=== PATIENT | male | born 1970 | race Caucasian/White ===

== ENCOUNTER 2019-12-26 11:22 | Emergency (ER) | payer OTHER ==
[~2019-12-26] VITALS: Ht 188 cm; Wt 104.3 kg
[2019-12-26 11:28] VITALS: BP 132/88
[2019-12-26] MEDS ORDERED: Bactrim-DS 1 tab ORAL ONE (12:30)
[2019-12-26] MEDS ORDERED: Cephalexin 500mg cap ORAL ONE (12:30)
[2019-12-26] MEDS ORDERED: BACTRIM DS TAB1 EAC1 ORAL (13:11)
[2019-12-26] MEDS ORDERED: CEPHALEXIN500 M1 ORAL (13:11)
[2019-12-26 13:34] VITALS: BP 128/84
--- NOTE | 2019-12-26 13:48 | Diagnostic Imaging Report ---
Indication: Left leg pain, edema, fever Technique: Grayscale and duplex images of the left lower extremity veins Comparison: None Findings: On the left, grayscale and duplex images demonstrate no evidence of intraluminal thrombus. Normal phasic Doppler waveforms, demonstrating normal augmentation response and no evidence of valvular insufficiency. Greater saphenous vein(s) and tibial veins are patent. Normal compressibility. Impression: Negative for evidence of lower extremity deep venous thrombosis on the left
--- NOTE | 2019-12-26 14:46 | Emergency Room Report ---
History of Present Illness General Chief Complaint: Wound Recheck/Suture Removal Source: Patient Present Illness HPI 49-year-old male presented for left lower extremity pain. Patient had Achilles tendon repair approximately 2 months ago. This was done by Dr. Jimmy luna. Patient was in a cast that was removed on December 08. For the past week is developed some increased redness and drainage from his surgical site. He did go to his primary care doctor today who referred him to the ER. He was unable to contact his surgeon. Pain is currently 8 out of 10 worse with walking and nonradiating. He states he had a tactile fever yesterday none today. Also complained of pain in the calf and left femoral area. Ambulatory on arrival. Allergies: Coded Allergies: No Known Allergies (Unverified , 12/26/19) COVID-19 Screening Contact w/high risk pt: No Recent Travel to affected area: No Experienced COVID-19 symptoms?: No Patient History Reviewed Nursing Documentation: PMH: Agreed; PSxH: Agreed Nursing Documentation-PM Past Medical History: No Stated History Review of Systems All Other Systems: negative except mentioned in HPI Physical Exam Vital Signs Date Time Temp Pulse Resp B/P (MAP) Pulse Ox O2 Delivery O2 Flow Rate FiO2 12/26/19 11:28 98.4 88 18 132/88 97 Room Air Sp02 EP Interpretation: reviewed, normal General Appearance: well appearing, no apparent distress Head: normocephalic, atraumatic Eyes: bilateral eye PERRL, bilateral eye EOMI ENT: hearing grossly normal, moist mucus membranes Neck: full range of motion, supple Respiratory: lungs clear, normal breath sounds, no rhonchi, no respiratory distress, no retraction, no wheezing Cardiovascular #1: normal peripheral pulses, regular rate, rhythm, no murmur Gastrointestinal: non tender, soft, non-distended, no guarding Musculoskeletal: other - Redness and tenderness noted to left lower calf, small amount of drainage from incision site. 2+ pulses distally. Neurologic: alert, oriented x3, no focal defects Skin: normal color, warm/dry Medical Decision Making Diagnostic Impression: Primary Impression: Postoperative wound infection ER Course Patient presented with the cellulitis of his surgical site. He had a small amount of drainage from his wound. Patient was afebrile with stable vital signs and ambulatory. I did obtain ultrasound of the extremity which did not demonstrate any evidence of DVT. I did attempt to page patient's surgeon to discuss the case however Dr. luna did not return my page. Discussion with the patient he wished to trial oral antibiotics and I was agreeable to this. Will start on p.o. Bactrim and Keflex. Have him follow-up in 2 days here or with his orthopedic surgeon for wound reassessment. Discharged home with return precautions. Last Vital Signs Date Time Temp Pulse Resp B/P (MAP) Pulse Ox O2 Delivery O2 Flow Rate FiO2 12/26/19 13:34 98.2 81 17 128/84 98 Room Air Disposition: HOME, SELF-CARE Condition: Stable Scripts Cephalexin* (KEFLEX*) 500 Mg Tablet 500 MG ORAL EVERY 6 HOURS, #40 CAP Prov: Suman Jackson M.D. 12/26/19 Trimethoprim/Sulfamethoxazole 160/800* (BACTRIM DS TABLET*) 1 Each Tablet 1 TAB ORAL Q12H, #20 TAB 0 Refills Prov: Suman Jackson M.D. 12/26/19 Patient Instructions: Wound Infection, [id number] Additional Instructions: Please follow-up with Dr. luna or return here for recheck in 2 days. Please return sooner for any worsening symptoms or concerns. Suman Jackson M.D. December 26, 2019 14:46
[2019-12-28] MEDS ORDERED: GABAPENTIN400 MG ORAL (12:53)
== END 2019-12-26 13:34 | disposition home or self-care (01) ==
LOC: EMR 12:35
DX: T81.49XA Infection following a procedure, other surgical site, initial encounter (principal); Z98.890 Other specified postprocedural states
CPT/HCPCS: 93971; 99284